=== PATIENT | female | born 1985 | race Asian ===

== ENCOUNTER 2016-08-07 20:02 | Inpatient (IN) | payer OTHER ==
[~2016-08-07] VITALS: Ht 160 cm; Wt 59.9 kg
[2016-08-07] MEDS ORDERED: OXYTOCIN 30 UNITS/LACT RINGERS 500 ML IV ONE (20:04)
[2016-08-07] MEDS ORDERED: RINGERS SOLUTION,LACTATED 1,000 ML IV PRN (20:04)
[2016-08-07] MEDS ORDERED: CITRIC ACID/SODIUM CITRATE 30 ML SOLUTION UDCUP PO PRN (20:15)
[2016-08-07] MEDS ORDERED: METOCLOPRAMIDE HCL 5 MG/ML 2 ML VIAL IVP PRN (20:15)
[2016-08-07] MEDS ORDERED: OXYGEN THERAPY IH SCH (20:15)
[2016-08-07 20:38] VITALS: BP 125/77
[2016-08-07] MEDS ORDERED: PREN1TAB80 PO (20:38)
[2016-08-07 20:52] LABS: BASOPHILS % (AUTO) 0.2 % (0.0-2.0); EOSINOPHILS % (AUTO) 0.1 % (1.0-6.0); HEMATOCRIT 32.2 % (36-46); HEMOGLOBIN 10.5 g/dL (12.0-16.0); LYMPHOCYTES # (AUTO) 1.2 K/uL (1.0-4.8); LYMPHOCYTES % (AUTO) 12.9 % (22.0-44.0); MEAN CORPUSCULAR HEMOGLOBIN 25.4 pg (26.0-34.0); MEAN CORPUSCULAR HGB CONC 32.7 G/dL (31.0-37.0); MEAN CORPUSCULAR VOLUME 78 fL (80-100); MONOCYTES # (AUTO) 0.8 K/uL (0.1-1.0); MONOCYTES % (AUTO) 8.9 % (2.0-9.0); NEUTROPHILS # (AUTO) 7.3 K/uL (1.8-7.7); NEUTROPHILS % (AUTO) 77.9 % (40.0-70.0); PLATELET COUNT (AUTO) 253 K/uL (150-450); RED BLOOD CELL COUNT(AUTO) 4.13 MIL/uL (4.00-5.20); RED CELL DISTRIBUTION WIDTH 14.6 % (11.5-14.5); WHITE BLOOD COUNT (AUTO) 9.3 K/uL (4.5-11.0)
[2016-08-07] MEDS: RINGERS SOLUTION,LACTATED 1,000 ML IV SCH ×2 (21:05→23:51)
[2016-08-07 21:20] LABS: RBC MORPHOLOGY COMMENT ABNORMAL RBC MORPH
[2016-08-07] MEDS ORDERED: OXYTOCIN 30 UNITS/LACT RINGERS 500 ML IV PRN (22:00)
[2016-08-07] MEDS ORDERED: AMPICILLIN SODIUM 2 GM/NS 100 ML IV ONE (22:15)
[2016-08-07] MEDS: FentaNYL CITRATE-PF 100 MCG/2 ML VIAL IVP PRN ×2 (23:45→23:51)
[2016-08-08] MEDS ORDERED: FentaNYL/BUPIV 0.125%/NS/PF 200 ML ED ONE (00:07)
[2016-08-08] MEDS ORDERED: BUPIVACAINE HCL/PF 0.25% 30 ML VIAL ONE (00:09)
[2016-08-08] MEDS ORDERED: FentaNYL/BUPIV 0.125%/NS/PF 200 ML ED PRN (01:03)
[2016-08-08] MEDS ORDERED: DiphenhydrAMINE HCL 50 MG/ML VIAL IVP PRN (01:15)
[2016-08-08] MEDS ORDERED: ONDANSETRON HCL 4 MG/2 ML VIAL IVP PRN (01:15)
[2016-08-08] MEDS ORDERED: OXYTOCIN 20 UNITS in RINGERS SOLUTION,LACTATED 1,000 ML IV SCH (01:56)
[2016-08-08] MEDS ORDERED: AMPICILLIN SODIUM 1 GM/NS 50 ML IV SCH (02:00)
[2016-08-08] MEDS ORDERED: LANOLIN 7 GM OINTMENT TP PRN (04:30)
[2016-08-08] MEDS ORDERED: BENZOCAINE 20%/MENTHOL 56 GM SPRAY CANISTER TP PRN (04:30)
[2016-08-08] MEDS ORDERED: MEASLES/MUMPS/RUBELLA VACCINE, LIVE 0.5 ML/VIAL SQ ONE (04:30)
[2016-08-08] MEDS ORDERED: GLYCERIN/WITCH HAZEL LEAF 40 PADS JAR TP PRN (04:30)
[2016-08-08] MEDS: SENNA/DOCUSATE SODIUM 187-50 MG TABLET PO PRN ×2 (08:54→21:45)
[2016-08-08] MEDS: MAGNESIUM HYDROXIDE SUSPENSION 30 ML UDCUP PO PRN ×2 (08:54→21:44)
[2016-08-08] MEDS: IBUPROFEN 600 MG TABLET PO PRN ×2 (08:54→21:45)
[2016-08-08] MEDS: ACETAMINOPHEN/CODEINE 300-30 MG TABLET PO PRN (18:32)
[2016-08-09] MEDS: IBUPROFEN 600 MG TABLET PO PRN (05:04)
[2016-08-09 06:05] LABS: BASOPHILS % (AUTO) 0.2 % (0.0-2.0); EOSINOPHILS % (AUTO) 0.3 % (1.0-6.0); HEMATOCRIT 30.7 % (36-46); HEMOGLOBIN 10.2 g/dL (12.0-16.0); LYMPHOCYTES # (AUTO) 1.5 K/uL (1.0-4.8); LYMPHOCYTES % (AUTO) 11.5 % (22.0-44.0); MEAN CORPUSCULAR HEMOGLOBIN 25.6 pg (26.0-34.0); MEAN CORPUSCULAR HGB CONC 33.2 G/dL (31.0-37.0); MEAN CORPUSCULAR VOLUME 77 fL (80-100); MONOCYTES # (AUTO) 0.8 K/uL (0.1-1.0); MONOCYTES % (AUTO) 6.4 % (2.0-9.0); NEUTROPHILS # (AUTO) 10.6 K/uL (1.8-7.7); NEUTROPHILS % (AUTO) 81.6 % (40.0-70.0); RED BLOOD CELL COUNT(AUTO) 3.98 MIL/uL (4.00-5.20); RED CELL DISTRIBUTION WIDTH 14.6 % (11.5-14.5)
[2016-08-09] MEDS: MAGNESIUM HYDROXIDE SUSPENSION 30 ML UDCUP PO PRN (07:47)
[2016-08-09] MEDS: ACETAMINOPHEN/CODEINE 300-30 MG TABLET PO PRN (08:49)
[2016-08-09 09:46] LABS: RBC MORPHOLOGY COMMENT ABNORMAL RBC MORPH
[2016-08-09] MEDS ORDERED: DSS100 PO (12:33)
[2016-08-09] MEDS ORDERED: ACET1TAB12 PO (12:33)
[2016-08-09] MEDS ORDERED: IBUP-2070 PO (12:33)
[2016-08-09] MEDS ORDERED: FERR-89 PO (12:33)
== END 2016-08-09 13:10 | disposition home or self-care (01) | DRG 775 ==
LOC: 4S 20:02 → OBSVTOIN 20:02
PROVIDERS: ADMIT Obstetrics & Gynecology; ATTEND Obstetrics & Gynecology
PROC: 10E0XZZ Delivery of Products of Conception, External Approach (ICD-10-PCS; principal; 2016-08-08)
PROC: 0KQM0ZZ Repair Perineum Muscle, Open Approach (ICD-10-PCS; 2016-08-08)
PROC: 3E0S3CZ (ICD-10-PCS; 2016-08-08)
PROC: 00HU33Z Insertion of Infusion Device into Spinal Canal, Percutaneous Approach (ICD-10-PCS; 2016-08-08)
PROC: 10907ZC Drainage of Amniotic Fluid, Therapeutic from Products of Conception, Via Natural or Artificial Opening (ICD-10-PCS; 2016-08-08)
PROC: 3E033VJ Introduction of Other Hormone into Peripheral Vein, Percutaneous Approach (ICD-10-PCS; 2016-08-08)
DX: O99.824 Streptococcus B carrier state complicating childbirth (principal); O70.1 Second degree perineal laceration during delivery; Z37.0 Single live birth; Z3A.39 39 weeks gestation of pregnancy
CPT/HCPCS: J0290; J2590; J3010; J3490; J7120

== ENCOUNTER 2018-11-10 20:08 | Inpatient (IN) | payer OTHER ==
[~2018-11-10] VITALS: Ht 160 cm; Wt 62.6 kg
[~2018-11-10 20:08] MED LIST: ACET1TAB12 PO; DSS100 PO; FERR-89 PO; IBUP-2070 PO; PREN1TAB80 PO
[2018-11-10] MEDS ORDERED: RINGERS SOLUTION,LACTATED 1,000 ML IV ONE (20:20)
[2018-11-10] MEDS ORDERED: OXYTOCIN 30 UNITS/LACT RINGERS 500 ML IV ONE (20:20)
[2018-11-10] MEDS: RINGERS SOLUTION,LACTATED 1,000 ML IV SCH (20:20)
[2018-11-10] MEDS ORDERED: FentaNYL CITRATE-PF 100 MCG/2 ML VIAL IVP PRN (20:30)
[2018-11-10] MEDS ORDERED: LIDOCAINE/PF 1% 30 ML VIAL INJ PRN (20:30)
[2018-11-10] MEDS ORDERED: METOCLOPRAMIDE HCL 5 MG/ML 2 ML VIAL IVP PRN (20:30)
[2018-11-10 20:55] LABS: BASOPHILS % (AUTO) 0.1 % (0.0-2.0); EOSINOPHILS % (AUTO) 0.3 % (1.0-6.0); HEMATOCRIT 37.7 % (36-46); LYMPHOCYTES # (AUTO) 1.2 K/uL (1.0-4.8); LYMPHOCYTES % (AUTO) 20.5 % (22.0-44.0); MEAN CORPUSCULAR HEMOGLOBIN 26.6 pg (26.0-34.0); MEAN CORPUSCULAR HGB CONC 31.9 G/dL (31.0-37.0); MEAN CORPUSCULAR VOLUME 83 fL (80-100); MONOCYTES # (AUTO) 0.6 K/uL (0.1-1.0); MONOCYTES % (AUTO) 11.1 % (2.0-9.0); NEUTROPHILS # (AUTO) 3.8 K/uL (1.8-7.7); PLATELET COUNT (AUTO) 216 K/uL (150-450); RED BLOOD CELL COUNT(AUTO) 4.52 MIL/uL (4.00-5.20); RED CELL DISTRIBUTION WIDTH 13.9 % (11.5-14.5)
[2018-11-10] MEDS ORDERED: AMPICILLIN SODIUM 2 GM/NS 100 ML IV ONE (21:00)
[2018-11-10] MEDS ORDERED: PREN-217 PO (22:55)
[2018-11-10] MEDS ORDERED: FOLI0.4T14 PO (22:55)
[2018-11-10] MEDS ORDERED: FERR-89 PO (22:56)
[2018-11-10] MEDS ORDERED: OXYTOCIN 30 UNITS/LACT RINGERS 500 ML IV PRN (23:28)
[2018-11-11] MEDS: AMPICILLIN SODIUM 1 GM/NS 50 ML IV SCH ×2 (02:02→06:08)
[2018-11-11] MEDS: RINGERS SOLUTION,LACTATED 1,000 ML IV SCH (05:27)
[2018-11-11] MEDS ORDERED: OXYTOCIN 20 UNITS/LACT RINGERS 1,000 ML IV SCH (09:16)
[2018-11-11] MEDS ORDERED: GLYCERIN/WITCH HAZEL LEAF 40 PADS JAR TP PRN (09:30)
[2018-11-11] MEDS ORDERED: ACETAMINOPHEN/CODEINE 300-30 MG TABLET PO PRN (09:30)
[2018-11-11] MEDS ORDERED: LANOLIN 7 GM OINTMENT TP PRN (09:30)
[2018-11-11] MEDS ORDERED: BENZOCAINE 20%/MENTHOL 56 GM SPRAY CANISTER TP PRN (09:30)
[2018-11-11] MEDS ORDERED: MEASLES/MUMPS/RUBELLA VACCINE, LIVE 0.5 ML/VIAL SQ ONE (09:30)
[2018-11-11] MEDS: IBUPROFEN 600 MG TABLET PO PRN ×2 (09:57→15:43)
[2018-11-11] MEDS: SENNA/DOCUSATE SODIUM 8.6-50 MG TABLET PO PRN (11:01)
[2018-11-11] MEDS: MAGNESIUM HYDROXIDE SUSPENSION 30 ML UDCUP PO PRN (11:02)
[2018-11-12 06:53] LABS: BASOPHILS % (AUTO) 0.2 % (0.0-2.0); EOSINOPHILS % (AUTO) 0.4 % (1.0-6.0); HEMATOCRIT 31.1 % (36-46); HEMOGLOBIN 10.4 g/dL (12.0-16.0); LYMPHOCYTES # (AUTO) 1.8 K/uL (1.0-4.8); LYMPHOCYTES % (AUTO) 19.5 % (22.0-44.0); MEAN CORPUSCULAR HGB CONC 33.5 G/dL (31.0-37.0); MEAN CORPUSCULAR VOLUME 84 fL (80-100); MONOCYTES # (AUTO) 0.8 K/uL (0.1-1.0); MONOCYTES % (AUTO) 8.7 % (2.0-9.0); NEUTROPHILS # (AUTO) 6.7 K/uL (1.8-7.7); NEUTROPHILS % (AUTO) 71.2 % (40.0-70.0); PLATELET COUNT (AUTO)-OB 185 K/uL (150-450); RED BLOOD CELL COUNT(AUTO) 3.72 MIL/uL (4.00-5.20); RED CELL DISTRIBUTION WIDTH 13.7 % (11.5-14.5)
[2018-11-12] MEDS: SENNA/DOCUSATE SODIUM 8.6-50 MG TABLET PO PRN (08:12)
[2018-11-12] MEDS: IBUPROFEN 600 MG TABLET PO PRN (08:12)
[2018-11-12] MEDS: MAGNESIUM HYDROXIDE SUSPENSION 30 ML UDCUP PO PRN (08:12)
[2018-11-12] MEDS ORDERED: PHENYLEPHRINE/SHK LV/MIN OIL/PET 57 GM OINTMENT TP SCH (09:00)
[2018-11-12] MEDS ORDERED: IBUP-2071 PO (10:57)
== END 2018-11-12 12:30 | disposition home or self-care (01) | DRG 807 ==
LOC: OBSVTOIN 20:08 → 4S 20:08
PROVIDERS: ADMIT Obstetrics & Gynecology; ATTEND Obstetrics & Gynecology
PROC: 10E0XZZ Delivery of Products of Conception, External Approach (ICD-10-PCS; principal; 2018-11-11)
PROC: 0KQM0ZZ Repair Perineum Muscle, Open Approach (ICD-10-PCS; 2018-11-11)
DX: O70.1 Second degree perineal laceration during delivery (principal); Z37.0 Single live birth; Z3A.39 39 weeks gestation of pregnancy
CPT/HCPCS: 86850; 86900; 86901; J0290; J2590; J3010; J3490; J7120